=== PATIENT | female | born 1975 | race Caucasian/White ===

== ENCOUNTER 2018-10-14 19:01 | Emergency (ER) | payer MEDICAID ==
[~2018-10-14] VITALS: Ht 160 cm; Wt 38.6 kg
[2018-10-14] MEDS ORDERED: morphine 4 MG/ML inj SYRINge IV ONE ×3 (20:40→22:45)
[2018-10-14 21:40] LABS: BASOPHILS % (AUTO) 0.1 % (0-1); EOSINOPHILS % (AUTO) 0 % (0-6); HEMATOCRIT 40.3 % (35.0-45.0); HEMOGLOBIN 14.2 g/dl (12.0-16.0); LYMPHOCYTES # (AUTO) 0.7 X10'3 (1.1-4.8); LYMPHOCYTES % (AUTO) 6.9 % (21-51); MEAN CORPUSCULAR HEMOGLOBIN 34.7 PG (27.0-31.0); MEAN CORPUSCULAR HGB CONC 35.2 g/dL (33.0-36.5); MEAN CORPUSCULAR VOLUME 98.5 FL (78-98); MONOCYTES # (AUTO) 0.7 X10'3 (0-0.9); MONOCYTES % (AUTO) 6.9 % (2-12); NEUTROPHILS # (AUTO) 8.3 X10'3 (1.8-7.7); NEUTROPHILS % (AUTO) 86.1 % (42-75); PLATELET COUNT 302 X10'3 (140-440); RED BLOOD COUNT 4.09 X10'6 (4.20-5.60); RED CELL DISTRIBUTION WIDTH 13.3 % (11.5-14.5); WHITE BLOOD COUNT 9.7 X10'3 (4.5-11.0)
--- NOTE | 2018-10-14 22:14 | NUR ---
Patient requesting no BP due to pain.
[2018-10-14 22:16] LABS: ALANINE AMINOTRANSFERASE 23 U/L (12-78); ALBUMIN 3.9 G/DL (3.4-5.0); ALBUMIN/GLOBULIN RATIO 1.3 (1.1-1.5); ALKALINE PHOSPHATASE 46 IU/L (46-116); ANION GAP 9 (8-16); ASPARTATE AMINO TRANSFERASE 11 U/L (10-37); BILIRUBIN,TOTAL 0.5 MG/DL (0.1-1.0); BLOOD UREA NITROGEN 24 MG/DL (7-18); BUN/CREATININE RATIO 28.9 (6.6-38.0); CALCIUM 9.7 MG/DL (8.5-10.1); CHLORIDE 102 MMOL/L (99-107); CREATININE 0.83 MG/DL (0.40-0.90); GLUCOSE 105 MG/DL (70-104); POTASSIUM 3.6 MMOL/L (3.5-5.1); SODIUM 140 MMOL/L (135-145); TOTAL CARBON DIOXIDE 29.1 MMOL/L (24-32); TOTAL PROTEIN 6.8 G/DL (6.4-8.2); eGFR 75 ML/MIN
[2018-10-14] MEDS ORDERED: dexamethasone sod phosphate 10mg/ml inj IV STA (22:20)
[2018-10-14 22:25] LABS: MAGNESIUM 2.4 MG/DL (1.5-2.4); PHOSPHORUS 3.2 MG/DL (2.3-4.5)
[2018-10-14 23:59] VITALS: BP 183/103
== END 2018-10-15 00:01 | disposition home or self-care (01) ==
LOC: ER 19:02
DX: I77.6 Arteritis, unspecified (principal); G62.9 Polyneuropathy, unspecified; G89.29 Other chronic pain; Z88.6 Allergy status to analgesic agent; Z88.1 Allergy status to other antibiotic agents
CPT/HCPCS: 36415; 80053; 83735; 84100; 84443; 84484; 85025; 93005; 96374; 96375; 96376; 99284; J1100; J2270

== ENCOUNTER 2018-10-29 17:46 | Emergency (ER) | payer MEDICAID ==
[~2018-10-29] VITALS: Ht 162.6 cm; Wt 38.6 kg
[2018-10-30] MEDS ORDERED: HYDROmorphone 1 mg/ml syringe IM ONE ×2 (00:20→02:10)
[2018-10-30 01:13] VITALS: BP 170/96
--- NOTE | 2018-10-30 01:16 | NUR ---
[facility] NOTIFIED OF PT'S REPORTED CHEST PAIN.
--- NOTE | 2018-10-30 01:31 | NUR ---
CALLED [facility] ABOUT [facility] REFERRED [facility]. TRYING THERE.
[2018-10-30] MEDS ORDERED: pregabalin 75mg capsule PO ONE (02:25)
[2018-10-30] MEDS ORDERED: OXYC5CAP19 PO (02:41)
--- NOTE | 2018-10-30 02:56 | NUR ---
dr. kwan talking with pt and her about discharge and that she is not going to be admitted for pain management and she will be given pain meds for discharge.
--- NOTE | 2018-10-30 03:33 | NUR ---
dr. kwan talking at length with pt and her . pt reporting that she is frustrated that we were planning to transfer her for anorexoia treatment and no one had talked to her and that she had reported initially to him that she was not seeking tretment for her anorexia but only for the pain. Pt's MD had sent her here to have her admitted for pain management and she reports still not having much relief.
== END 2018-10-30 03:39 | disposition home or self-care (01) ==
LOC: ER 17:47
DX: G89.29 Other chronic pain (principal); M79.641 Pain in right hand; M79.642 Pain in left hand; R63.0 Anorexia; M79.673 Pain in unspecified foot; G62.9 Polyneuropathy, unspecified; Z88.0 Allergy status to penicillin; Z79.899 Other long term (current) drug therapy
CPT/HCPCS: 93005; 96372; 99283; J1170

== ENCOUNTER 2019-03-02 05:18 | Emergency (ER) | payer MEDICAID ==
[~2019-03-02] VITALS: Ht 160 cm; Wt 42.3 kg
[~2019-03-02 05:18] MED LIST: OXYC5CAP19 PO
[2019-03-02] MEDS ORDERED: ondansetron/PF 4mg/2ml inj IV ONE (06:30)
[2019-03-02 06:32] LABS: ALANINE AMINOTRANSFERASE 24 U/L (12-78); ALBUMIN 3.6 G/DL (3.4-5.0); ALBUMIN/GLOBULIN RATIO 1.3 (1.1-1.5); ALKALINE PHOSPHATASE 32 IU/L (46-116); ANION GAP 9 (8-16); ASPARTATE AMINO TRANSFERASE 12 U/L (10-37); BILIRUBIN,TOTAL 0.3 MG/DL (0.1-1.0); BLOOD UREA NITROGEN 18 MG/DL (7-18); BUN/CREATININE RATIO 22.2 (6.6-38.0); CALCIUM 8.5 MG/DL (8.5-10.1); CHLORIDE 108 MMOL/L (99-107); CREATININE 0.81 MG/DL (0.40-0.90); GLUCOSE 91 MG/DL (70-104); POTASSIUM 3.5 MMOL/L (3.5-5.1); SODIUM 145 MMOL/L (135-145); TOTAL CARBON DIOXIDE 28.4 MMOL/L (24-32); TOTAL PROTEIN 6.4 G/DL (6.4-8.2); eGFR 78 ML/MIN
[2019-03-02] MEDS ORDERED: ketorolac trometh. 30mg/ml inj. IV ONE (06:35)
[2019-03-02] MEDS ORDERED: ketorolac tromethamine 15mg/ml inj. IV ONE (06:40)
[2019-03-02] MEDS ORDERED: normal saline 1000ML IV soln IVB ONE (06:50)
[2019-03-02] MEDS ORDERED: KETAMINE IV ONE ×2 (06:50→07:00)
[2019-03-02] MEDS ORDERED: NORMAL SALINE IV ONE ×2 (06:50→07:00)
[2019-03-02 07:01] LABS: BASOPHILS % (AUTO) 0.6 % (0-1); EOSINOPHILS # (AUTO) 0.1 X10'3 (0-0.9); EOSINOPHILS % (AUTO) 1.9 % (0-6); HEMATOCRIT 36.9 % (35.0-45.0); HEMOGLOBIN 12.9 g/dl (12.0-16.0); LYMPHOCYTES # (AUTO) 1.3 X10'3 (1.1-4.8); LYMPHOCYTES % (AUTO) 26.9 % (21-51); MEAN CORPUSCULAR VOLUME 97.3 FL (78-98); MEAN PLATELET VOLUME 6.4 FL (7.4-10.4); MONOCYTES # (AUTO) 0.4 X10'3 (0-0.9); MONOCYTES % (AUTO) 8.4 % (2-12); NEUTROPHILS # (AUTO) 3.1 X10'3 (1.8-7.7); NEUTROPHILS % (AUTO) 62.2 % (42-75); PLATELET COUNT 190 X10'3 (140-440); RED BLOOD COUNT 3.79 X10'6 (4.20-5.60); RED CELL DISTRIBUTION WIDTH 11.6 % (11.5-14.5); WHITE BLOOD COUNT 4.9 X10'3 (4.5-11.0)
[2019-03-02 08:19] LABS: PARTIAL THROMBOPLASTIN TIME 29 SECONDS (22-32)
[2019-03-02 10:37] VITALS: BP 143/84
== END 2019-03-02 10:38 | disposition home or self-care (01) ==
LOC: ER 05:19
DX: R07.89 Other chest pain (principal); G89.29 Other chronic pain; Z88.1 Allergy status to other antibiotic agents; Z88.8 Allergy status to other drugs, medicaments and biological substances; Z98.890 Other specified postprocedural states
CPT/HCPCS: 36415; 71045; 80053; 84484; 85025; 85610; 85730; 93005; 96365; 96375; 99284; J1885; J2405; J7030

== ENCOUNTER 2019-03-16 18:47 | Emergency (ER) | payer MEDICAID ==
[~2019-03-16] VITALS: Ht 160 cm; Wt 44.4 kg
[2019-03-16] MEDS ORDERED: proCHLORperazine 10 MG/2 ml inj IV ONE (19:40)
[2019-03-16 19:46] LABS: BASOPHILS % (AUTO) 0.4 % (0-1); EOSINOPHILS % (AUTO) 0.6 % (0-6); HEMATOCRIT 33.8 % (35.0-45.0); HEMOGLOBIN 11.9 g/dl (12.0-16.0); LYMPHOCYTES % (AUTO) 16.4 % (21-51); MEAN CORPUSCULAR HEMOGLOBIN 34.5 PG (27.0-31.0); MEAN CORPUSCULAR HGB CONC 35.4 g/dL (33.0-36.5); MEAN CORPUSCULAR VOLUME 97.4 FL (78-98); MEAN PLATELET VOLUME 6.2 FL (7.4-10.4); MONOCYTES # (AUTO) 0.5 X10'3 (0-0.9); MONOCYTES % (AUTO) 8.3 % (2-12); NEUTROPHILS # (AUTO) 4.6 X10'3 (1.8-7.7); NEUTROPHILS % (AUTO) 74.3 % (42-75); PLATELET COUNT 170 X10'3 (140-440); RED BLOOD COUNT 3.47 X10'6 (4.20-5.60); RED CELL DISTRIBUTION WIDTH 11.8 % (11.5-14.5); WHITE BLOOD COUNT 6.2 X10'3 (4.5-11.0)
--- NOTE | 2019-03-16 19:49 | NUR ---
PICC line is in the appropriate location and is acceptable for access per Dr. Perkins.
[2019-03-16 20:03] LABS: PARTIAL THROMBOPLASTIN TIME 28 SECONDS (22-32)
[2019-03-16 20:08] LABS: ALANINE AMINOTRANSFERASE 22 U/L (12-78); ALBUMIN 3.6 G/DL (3.4-5.0); ALBUMIN/GLOBULIN RATIO 1.4 (1.1-1.5); ALKALINE PHOSPHATASE 28 IU/L (46-116); ANION GAP 9 (8-16); ASPARTATE AMINO TRANSFERASE 16 U/L (10-37); BILIRUBIN,TOTAL 0.4 MG/DL (0.1-1.0); BLOOD UREA NITROGEN 18 MG/DL (7-18); BUN/CREATININE RATIO 23.4 (6.6-38.0); CALCIUM 7.9 MG/DL (8.5-10.1); CHLORIDE 106 MMOL/L (99-107); CREATININE 0.77 MG/DL (0.40-0.90); GLUCOSE 73 MG/DL (70-104); POTASSIUM 3.8 MMOL/L (3.5-5.1); SODIUM 140 MMOL/L (135-145); TOTAL CARBON DIOXIDE 25.4 MMOL/L (24-32); TOTAL PROTEIN 6.2 G/DL (6.4-8.2); eGFR 82 ML/MIN
[2019-03-16 20:10] LABS: PHOSPHORUS 2.8 MG/DL (2.3-4.5)
[2019-03-16 20:20] LABS: MAGNESIUM 2.2 MG/DL (1.5-2.4)
[2019-03-16 21:04] VITALS: BP 115/70
== END 2019-03-16 21:06 | disposition home or self-care (01) ==
LOC: ER 18:48
DX: R07.9 Chest pain, unspecified (principal); G62.9 Polyneuropathy, unspecified; G89.29 Other chronic pain; Z88.6 Allergy status to analgesic agent; Z88.1 Allergy status to other antibiotic agents; Z88.8 Allergy status to other drugs, medicaments and biological substances
CPT/HCPCS: 36415; 71045; 80053; 83735; 84100; 84484; 85025; 85610; 85730; 93005; 96374; 99284; J0780

== ENCOUNTER 2019-05-25 21:17 | Emergency (ER) | payer MEDICAID ==
[~2019-05-25] VITALS: Ht 165.1 cm; Wt 41.3 kg
--- NOTE | 2019-05-25 21:40 | NUR ---
Dr. Hill is at the bedside with the patient at this time.
[2019-05-25] MEDS ORDERED: methylPREDNISolone sod succ 125mg/2ml vial IV ONE (21:45)
[2019-05-25] MEDS ORDERED: ketorolac trometh. 30mg/ml inj. IV ONE (21:45)
[2019-05-25] MEDS ORDERED: normal saline 1000ML IV soln IVB ONE (21:45)
[2019-05-25] MEDS ORDERED: ondansetron/PF 4mg/2ml inj IV ONE (21:45)
[2019-05-25 22:07] LABS: CLARITY,URINE CLOUDY (Clear); COLOR,URINE YELLOW (Yellow); GLUCOSE, URINE NEGATIVE (Neg); KETONES,URINE NEGATIVE (Neg); LEUKOCYTE ESTERASE ,URINE NEGATIVE (Neg); NITRITES, URINE NEGATIVE (Neg); OCCULT BLOOD,URINE NEGATIVE (Neg); PROTEIN,URINE NEGATIVE (Neg); URINE HCG NEGATIVE (NEG); UROBILINOGEN,URINE 0.2 E.U/dL (0.2-1.0)
[2019-05-25 22:12] LABS: UA COLLECTION TYPE CLN CATCH MIDSTREAM
[2019-05-25 22:13] LABS: SQUAMOUS EPITHELIAL CELL,UR FEW /LPF (FEW)
[2019-05-25 22:13] LABS: ALANINE AMINOTRANSFERASE 15 U/L (12-78); ALBUMIN 3.7 G/DL (3.4-5.0); ALBUMIN/GLOBULIN RATIO 1.1 (1.1-1.5); ALKALINE PHOSPHATASE 51 IU/L (46-116); ANION GAP 11 (8-16); ASPARTATE AMINO TRANSFERASE 14 U/L (10-37); BILIRUBIN,TOTAL 0.2 MG/DL (0.1-1.0); BLOOD UREA NITROGEN 24 MG/DL (7-18); BUN/CREATININE RATIO 24.5 (6.6-38.0); CALCIUM 8.7 MG/DL (8.5-10.1); CHLORIDE 108 MMOL/L (99-107); CREATININE 0.98 MG/DL (0.40-0.90); GLUCOSE 90 MG/DL (70-104); POTASSIUM 3.7 MMOL/L (3.5-5.1); SODIUM 145 MMOL/L (135-145); TOTAL CARBON DIOXIDE 25.8 MMOL/L (24-32); TOTAL PROTEIN 7.1 G/DL (6.4-8.2); eGFR 62 ML/MIN
[2019-05-25] MEDS: morphine 4 MG/ML inj SYRINge IV PRN ×2 (22:13→23:17)
[2019-05-25 22:15] LABS: AMORPHOUS URATES 2+; MUCUS STRANDS NONE SEEN /LPF (Neg)
[2019-05-25 22:26] LABS: BACTERIA,URINE FEW /HPF (Neg); RBC,URINE 0-2 /HPF (0-2); WBC,URINE 0-4 /HPF (0-4)
[2019-05-25 22:41] LABS: BASOPHILS % (AUTO) 0.8 % (0-1); EOSINOPHILS # (AUTO) 0.1 X10'3 (0-0.9); EOSINOPHILS % (AUTO) 2.7 % (0-6); HEMATOCRIT 36.9 % (35.0-45.0); HEMOGLOBIN 13.2 g/dl (12.0-16.0); LYMPHOCYTES # (AUTO) 1.5 X10'3 (1.1-4.8); LYMPHOCYTES % (AUTO) 42.3 % (21-51); MEAN CORPUSCULAR HEMOGLOBIN 34.2 PG (27.0-31.0); MEAN CORPUSCULAR HGB CONC 35.8 g/dL (33.0-36.5); MEAN CORPUSCULAR VOLUME 95.6 FL (78-98); MEAN PLATELET VOLUME 6.5 FL (7.4-10.4); MONOCYTES # (AUTO) 0.4 X10'3 (0-0.9); MONOCYTES % (AUTO) 12.3 % (2-12); NEUTROPHILS # (AUTO) 1.4 X10'3 (1.8-7.7); NEUTROPHILS % (AUTO) 41.9 % (42-75); PLATELET COUNT 191 X10'3 (140-440); RED BLOOD COUNT 3.86 X10'6 (4.20-5.60); RED CELL DISTRIBUTION WIDTH 11.5 % (11.5-14.5); WHITE BLOOD COUNT 3.5 X10'3 (4.5-11.0)
[2019-05-25 22:44] LABS: URINE AMPHETAMINE SCREEN NEGATIVE (Neg); URINE BARBITUATE SCREEN POSITIVE (Neg); URINE BENZODIAZEPINES SCREEN NEGATIVE (Neg); URINE CANNABINOID SCREEN NEGATIVE (Neg); URINE COCAINE SCREEN NEGATIVE (Neg); URINE METHADONE SCREEN NEGATIVE (Neg); URINE OPIATE SCREEN POSITIVE (Neg); URINE PHENCYCLIDINE SCREEN NEGATIVE (Neg)
[2019-05-26 00:02] VITALS: BP 139/89
== END 2019-05-25 23:55 | disposition home or self-care (01) ==
LOC: ER 21:18
DX: I77.6 Arteritis, unspecified (principal); M79.641 Pain in right hand; L53.9 Erythematous condition, unspecified; R21 Rash and other nonspecific skin eruption; G62.9 Polyneuropathy, unspecified; Z88.1 Allergy status to other antibiotic agents; Z88.6 Allergy status to analgesic agent; Z79.899 Other long term (current) drug therapy; G89.29 Other chronic pain; Z98.890 Other specified postprocedural states
CPT/HCPCS: 36415; 80053; 80305; 81001; 81025; 85025; 96374; 96375; 96376; 99283; J1885; J2270; J2405; J2930; J7030

== ENCOUNTER 2019-11-06 22:22 | Emergency (ER) | payer MEDICAID ==
[~2019-11-06] VITALS: Ht 160 cm; Wt 43.2 kg
[2019-11-06] MEDS ORDERED: morphine 4 MG/ML inj SYRINge IV ONE (23:05)
[2019-11-06] MEDS ORDERED: ketorolac trometh. 30mg/ml inj. IV ONE (23:05)
[2019-11-06] MEDS ORDERED: normal saline 1000ml 1,000 ML IV ONE (23:05)
[2019-11-06] MEDS ORDERED: methylPREDNISolone sod succ 125mg/2ml vial IV ONE (23:05)
[2019-11-06] MEDS ORDERED: ondansetron/PF 4mg/2ml inj IV ONE (23:05)
[2019-11-06] MEDS ORDERED: LIDOCAINE 5% OINTMENT 35GM TP ONE (23:05)
[2019-11-07] MEDS ORDERED: morphine 4 MG/ML inj SYRINge IV ONE (00:05)
[2019-11-07 00:27] VITALS: BP 124/77
== END 2019-11-07 00:34 | disposition home or self-care (01) ==
LOC: ER 22:22
DX: M79.671 Pain in right foot (principal); G62.9 Polyneuropathy, unspecified; G89.29 Other chronic pain; Z98.890 Other specified postprocedural states; Z88.1 Allergy status to other antibiotic agents; Z88.8 Allergy status to other drugs, medicaments and biological substances; Z79.899 Other long term (current) drug therapy
CPT/HCPCS: 96374; 96375; 99284; J1885; J2270; J2405; J2930; J7030

== ENCOUNTER 2020-01-14 18:02 | Emergency (ER) | payer MEDICAID ==
[~2020-01-14] VITALS: Ht 160 cm; Wt 45.0 kg
--- NOTE | 2020-01-14 19:05 | NUR ---
Provider Connie Ozuna PA-C is with the patient at this time.
[2020-01-14] MEDS ORDERED: proCHLORperazine 10 MG/2 ml inj IM ONE (19:20)
[2020-01-14] MEDS ORDERED: diphenhydrAMINE 25mg capsule PO ONE (19:20)
--- NOTE | 2020-01-14 19:32 | NUR ---
Patient refused the compazine injection because she received it here in the ED on a previous occasion and felt like it made her very anxious and she does not want that experience again.
[2020-01-14 20:10] VITALS: BP 128/79
[2020-01-14] MEDS ORDERED: ketorolac trometh inj. 60 MG/2 ML VIAL IM ONE (20:20)
[2020-01-14] MEDS ORDERED: predniSONE 20 mg tablet PO ONE (20:45)
[2020-01-14] MEDS ORDERED: dexamethasone sod phosphate 10mg/ml inj IM STA (20:46)
== END 2020-01-14 21:10 | disposition home or self-care (01) ==
LOC: ER 18:03
DX: R68.84 Jaw pain (principal); G89.29 Other chronic pain; Z98.890 Other specified postprocedural states; Z88.1 Allergy status to other antibiotic agents; Z88.8 Allergy status to other drugs, medicaments and biological substances; Z79.899 Other long term (current) drug therapy
CPT/HCPCS: 36415; 85651; 86140; 96372; 99284; J1100; J1885; Q0163

== ENCOUNTER 2021-01-27 20:24 | Emergency (ER) | payer MEDICAID ==
[~2021-01-27] VITALS: Ht 160 cm; Wt 48.8 kg
[2021-01-27] MEDS ORDERED: LORazepam 2 mg/ml vial IV ONE (20:30)
[2021-01-27] MEDS ORDERED: NORE1TAB99 PO (21:07)
[2021-01-27] MEDS ORDERED: FERR240T5 PO (21:07)
[2021-01-27] MEDS ORDERED: PANT-47 PO (21:07)
[2021-01-27] MEDS ORDERED: PRED10TA PO (21:07)
[2021-01-27] MEDS ORDERED: AZAT50TA18 PO (21:07)
[2021-01-27] MEDS ORDERED: BUTA-281 PO (21:07)
[2021-01-27] MEDS ORDERED: VENL50TA4 PO (21:07)
[2021-01-27] MEDS ORDERED: ONDA4TAB12 SL (21:07)
[2021-01-27] MEDS ORDERED: ESZO3TAB66 PO (21:07)
[2021-01-27] MEDS ORDERED: POTA10TA19 PO (21:07)
[2021-01-27] MEDS ORDERED: AMLO10TA13 PO (21:07)
[2021-01-27] MEDS ORDERED: FURO20TA4 PO (21:07)
[2021-01-27] MEDS ORDERED: ACET-3067 PO (21:15)
[2021-01-27] MEDS ORDERED: PENT400T17 PO (21:15)
[2021-01-27] MEDS ORDERED: BUPR1PAT3 (21:15)
[2021-01-27] MEDS ORDERED: CBD (21:15)
[2021-01-27] MEDS ORDERED: DICY20TA14 PO (21:15)
[2021-01-27] MEDS ORDERED: PREG75CA75 PO (21:15)
[2021-01-27] MEDS ORDERED: DOXY100T2 PO (21:15)
[2021-01-27] MEDS ORDERED: NORT50CA PO (21:15)
[2021-01-27 21:25] LABS: BASOPHILS % (AUTO) 0.2 % (0-1); EOSINOPHILS % (AUTO) 0.2 % (0-6); HEMATOCRIT 38.1 % (35.0-45.0); HEMOGLOBIN 13.2 g/dl (12.0-16.0); LYMPHOCYTES % (AUTO) 31.3 % (21-51); MEAN CORPUSCULAR HGB CONC 34.8 g/dL (33.0-36.5); MEAN CORPUSCULAR VOLUME 103.5 FL (78-98); MEAN PLATELET VOLUME 6.2 FL (7.4-10.4); MONOCYTES # (AUTO) 0.7 X10'3 (0-0.9); MONOCYTES % (AUTO) 10.8 % (2-12); NEUTROPHILS # (AUTO) 3.8 X10'3 (1.8-7.7); NEUTROPHILS % (AUTO) 57.5 % (42-75); PLATELET COUNT 249 X10'3 (140-440); RED BLOOD COUNT 3.68 X10'6 (4.20-5.60); RED CELL DISTRIBUTION WIDTH 12.4 % (11.5-14.5); WHITE BLOOD COUNT 6.5 X10'3 (4.5-11.0)
[2021-01-27 21:37] LABS: D-DIMER < 0.19 MG/L FEU (0-0.50)
[2021-01-27 21:41] LABS: ALANINE AMINOTRANSFERASE 34 U/L (12-78); ALBUMIN 3.5 G/DL (3.4-5.0); ALBUMIN/GLOBULIN RATIO 1.4 (1.1-1.5); ALKALINE PHOSPHATASE 55 IU/L (46-116); ANION GAP 8 (8-16); ASPARTATE AMINO TRANSFERASE 16 U/L (10-37); BILIRUBIN,TOTAL 0.3 MG/DL (0.1-1.0); BLOOD UREA NITROGEN 24 MG/DL (7-18); BUN/CREATININE RATIO 26.4 (6.6-38.0); CALCIUM 8.2 MG/DL (8.5-10.1); CHLORIDE 106 MMOL/L (99-107); CREATININE 0.91 MG/DL (0.40-0.90); GLUCOSE 101 MG/DL (70-104); POTASSIUM 3.4 MMOL/L (3.5-5.1); SODIUM 141 MMOL/L (135-145); TOTAL CARBON DIOXIDE 27.2 MMOL/L (24-32); eGFR 67 ML/MIN
[2021-01-28 01:25] VITALS: BP 114/76
== END 2021-01-28 01:26 | disposition home or self-care (01) ==
LOC: ER 20:24
DX: R07.89 Other chest pain (principal); R42 Dizziness and giddiness; G62.9 Polyneuropathy, unspecified; G89.29 Other chronic pain; Z98.890 Other specified postprocedural states; Z88.1 Allergy status to other antibiotic agents; Z88.8 Allergy status to other drugs, medicaments and biological substances; Z79.899 Other long term (current) drug therapy
CPT/HCPCS: 36415; 71045; 80053; 83605; 83880; 84484; 85025; 85379; 85610; 93005; 96374; 99285; J2060

== ENCOUNTER 2022-01-03 01:35 | Emergency (ER) | payer MEDICAID ==
[~2022-01-03] VITALS: Ht 160 cm; Wt 45.5 kg
[~2022-01-03 01:35] MED LIST changes: +ACET-2 PO; +AMLO10TA13 PO; +AZAT50TA18 PO; +BUPR1PAT3; +BUTA-281 PO; +CBD; +DICY20TA14 PO; +DOXY100T2 PO; +ESZO3TAB66 PO; +FERR240T5 PO; +FURO20TA4 PO; +NORE1TAB99 PO; +NORT50CA PO; +ONDA4TAB12 SL; -OXYC5CAP19 PO; +PANT-47 PO; +PENT400T17 PO; +POTA-192 PO; +PRED10TA PO; +PREG75CA75 PO; +VENL50TA4 PO
[2022-01-03] MEDS ORDERED: normal saline 1000ml 1,000 ML IV ONE (02:35)
[2022-01-03] MEDS ORDERED: diazepam inj 5 MG/ML inj. IV ONE (02:35)
[2022-01-03 02:57] LABS: BASOPHILS % (AUTO) 0.5 % (0-1); EOSINOPHILS % (AUTO) 0.3 % (0-6); HEMATOCRIT 39.5 % (35.0-45.0); HEMOGLOBIN 13.8 g/dl (12.0-16.0); LYMPHOCYTES # (AUTO) 1.4 X10'3 (1.1-4.8); LYMPHOCYTES % (AUTO) 20.4 % (21-51); MEAN CORPUSCULAR HEMOGLOBIN 36.1 PG (27.0-31.0); MEAN CORPUSCULAR HGB CONC 34.9 g/dL (33.0-36.5); MEAN CORPUSCULAR VOLUME 103.5 FL (78-98); MEAN PLATELET VOLUME 6.3 FL (7.4-10.4); MONOCYTES # (AUTO) 0.8 X10'3 (0-0.9); MONOCYTES % (AUTO) 10.8 % (2-12); NEUTROPHILS # (AUTO) 4.8 X10'3 (1.8-7.7); PLATELET COUNT 250 X10'3 (140-440); RED BLOOD COUNT 3.82 X10'6 (4.20-5.60); RED CELL DISTRIBUTION WIDTH 11.9 % (11.5-14.5)
[2022-01-03 03:10] LABS: ALANINE AMINOTRANSFERASE 23 U/L (12-78); ALBUMIN 3.3 G/DL (3.4-5.0); ALBUMIN/GLOBULIN RATIO 1.3 (1.1-1.5); ALKALINE PHOSPHATASE 56 IU/L (46-116); ANION GAP 6 (8-16); ASPARTATE AMINO TRANSFERASE 14 U/L (10-37); BILIRUBIN,TOTAL 0.3 MG/DL (0.1-1.0); BLOOD UREA NITROGEN 15 MG/DL (7-18); BUN/CREATININE RATIO 19.5 (6.6-38.0); CALCIUM 8.3 MG/DL (8.5-10.1); CHLORIDE 107 MMOL/L (99-107); CREATININE 0.77 MG/DL (0.40-0.90); GLUCOSE 89 MG/DL (70-104); POTASSIUM 3.3 MMOL/L (3.5-5.1); SODIUM 140 MMOL/L (135-145); TOTAL CARBON DIOXIDE 26.6 MMOL/L (24-32); TOTAL PROTEIN 5.8 G/DL (6.4-8.2); eGFR 81 ML/MIN
[2022-01-03] MEDS ORDERED: POTASSIUM BICARB 20meq eff tab 20 MEQ TABLET.EFF PO STA (05:12)
[2022-01-03 05:50] VITALS: BP 178/97
== END 2022-01-03 05:55 | disposition home or self-care (01) ==
LOC: ER 01:36
DX: E87.6 Hypokalemia (principal); M79.641 Pain in right hand; M79.642 Pain in left hand; M79.671 Pain in right foot; M79.672 Pain in left foot; G89.29 Other chronic pain; G62.9 Polyneuropathy, unspecified; Z98.890 Other specified postprocedural states; Z88.1 Allergy status to other antibiotic agents; Z88.8 Allergy status to other drugs, medicaments and biological substances; Z88.5 Allergy status to narcotic agent; Z79.899 Other long term (current) drug therapy
CPT/HCPCS: 80053; 83605; 85025; 96361; 96374; 99283; J3360; J7030

== ENCOUNTER 2022-07-23 05:31 | Emergency (ER) | payer MEDICAID ==
[~2022-07-23] VITALS: Ht 160 cm; Wt 47.7 kg
[2022-07-23] MEDS ORDERED: ketorolac tromethamine 15mg/ml inj. IV ONE (07:00)
[2022-07-23] MEDS ORDERED: cyclobenzaprine 10mg tablet PO ONE (07:00)
[2022-07-23] MEDS ORDERED: normal saline 1000ML IV soln IVB ONE (07:00)
[2022-07-23] MEDS ORDERED: ondansetron/PF 4mg/2ml inj IV ONE (07:00)
[2022-07-23] MEDS ORDERED: famotidine/PF 10 mg/ml inj IV ONE (07:00)
[2022-07-23] MEDS ORDERED: LORazepam 2 mg/ml vial IV ONE ×2 (07:00→10:35)
[2022-07-23] MEDS: morphine 2 MG/ML inj. syringe IV PRN ×5 (09:20→10:24)
[2022-07-23] MEDS ORDERED: HYDROmorphone inj. 0.5 MG/0.5 ML DISP.SYRIN IV ONE (11:25)
[2022-07-23] MEDS ORDERED: fentaNYL/PF 50MCG/1 ML 2ML syringe IV ONE ×2 (15:00→15:55)
[2022-07-23] MEDS ORDERED: triamcinolone acetonide 40mg/ml inj IM ONE (15:55)
[2022-07-23 16:14] VITALS: BP 121/81
== END 2022-07-23 16:16 | disposition home or self-care (01) ==
LOC: ER 05:33
DX: M25.511 Pain in right shoulder (principal); M54.2 Cervicalgia; M54.12 Radiculopathy, cervical region; G89.29 Other chronic pain; Z88.1 Allergy status to other antibiotic agents; Z88.5 Allergy status to narcotic agent; Z88.8 Allergy status to other drugs, medicaments and biological substances
CPT/HCPCS: 72141; 96361; 96372; 96374; 96375; 96376; 99285; J1170; J1885; J2060; J2270; J2405; J3010; J3301; J3490; J7030

== ENCOUNTER → 2022-09-28 | Day surgery (SDC) | payer MEDICAID ==
[~2022-09-28] VITALS: Ht 160 cm; Wt 48.9 kg
[~2022-09-28] MED LIST changes: +LIDOcaine 1% 30ml preserv. free vial IJ ONE; +LIDOcaine/PRILOcaine 5gm cream TP ONE
--- NOTE | 2022-09-28 11:40 | NUR ---
5F DUAL LUMEN PICC PLACEMENT USING ULTRASOUND GUIDANCE AND ECG. PICC LINE PLACED IN RIGHT BASILIC VEIN, CONFIRMATION WITH ECG, DRESSING CLEAN, DRY, AND INTACT.
== END | disposition home or self-care (01) ==
LOC: SSTAY O 09:52
PROVIDERS: ATTEND Family Medicine
DX: I73.81 Erythromelalgia (principal); M35.9 Systemic involvement of connective tissue, unspecified
CPT/HCPCS: 36573; C1751; 36569; 76942